=== PATIENT | female | born 1975 | race Caucasian/White ===

== ENCOUNTER 2017-02-12 21:17 | Emergency (ER) | payer OTHER ==
[~2017-02-12] VITALS: Ht 177.8 cm; Wt 114.1 kg
[2017-02-12 22:11] LABS: BLOOD UREA NITROGEN 13 mg/dL (7-18)
[2017-02-12 22:19] LABS: IS PT STATUS REG ER OR PRE ER? YES
[2017-02-12 23:14] VITALS: BP 138/92
== END 2017-02-12 23:15 | disposition home or self-care (01) ==
LOC: ED 23:09
DX: R07.89 Other chest pain (principal); I10 Essential (primary) hypertension
CPT/HCPCS: 36415; 71010; 80048; 82040; 83735; 84443; 84484; 85025; 93005; 99285

== ENCOUNTER 2017-09-18 12:34 | Emergency (ER) | payer OTHER ==
[~2017-09-18] VITALS: Ht 177.8 cm; Wt 115.0 kg
[2017-09-18] MEDS ORDERED: MECLIZINE CHEWABLE 25 MG TAB PO ONE (14:00)
[2017-09-18 14:18] LABS: HEMOGLOBIN 14.4 g/dL (11.7-16.4); WHITE BLOOD COUNT 7.3 x10^3/uL (3.4-10)
[2017-09-18 14:27] LABS: BLOOD UREA NITROGEN 12 mg/dL (7-18)
[2017-09-18 14:35] LABS: IS PT STATUS REG ER OR PRE ER? YES
[2017-09-18] MEDS ORDERED: MECLIZINE CHEWABLE 25 MG TAB ONE (14:35)
[2017-09-18 15:17] VITALS: BP 145/113
== END 2017-09-18 15:28 | disposition home or self-care (01) ==
LOC: ED 15:22
DX: I10 Essential (primary) hypertension (principal)
CPT/HCPCS: 36415; 70551; 80048; 82040; 83735; 84484; 85025; 93005; 99285

== ENCOUNTER 2018-08-02 22:19 | Emergency (ER) | payer OTHER ==
[~2018-08-02] VITALS: Ht 177.8 cm; Wt 115.6 kg
[2018-08-02] MEDS ORDERED: DILTIAZEM 5 MG/ML, 5ML IV ONE (23:30)
[2018-08-02 23:37] LABS: BASOPHILS # (AUTO) 0.03 x10^3/uL (0-0.1); BASOPHILS % (AUTO) 0 % (0-1); EOSINOPHILS # (AUTO) 0.36 x10^3/uL (0-0.4); EOSINOPHILS % (AUTO) 4 % (1-7); LYMPHOCYTES # (AUTO) 3.15 x10^3/uL (1-3.4); LYMPHOCYTES % (AUTO) 32 % (22-44); MD NO; MEAN CORPUSCULAR HEMOGLOBIN 34.6 pg (27.0-34.8); MEAN CORPUSCULAR HGB CONC 34.6 g/dL (32.4-35.8); MEAN PLATELET VOLUME 8.4 fL (7.4-10.4); MONOCYTES % (AUTO) 10 % (2-9); NEUTROPHILS # (AUTO) 5.27 x10^3/uL (1.8-6.8); NEUTROPHILS % (AUTO) 54 % (42-75); PLATELET COUNT 229 x10^3/uL (130-400); RED BLOOD COUNT 4.71 x10^6/uL (3.82-5.3); RED CELL DISTRIBUTION WIDTH 13.2 % (9.6-15.2)
[2018-08-02] MEDS ORDERED: DILTIAZEM 5 MG/ML, 5ML ONE (23:46)
[2018-08-02 23:49] LABS: ANION GAP 11 mmol/L (5-15); CALCIUM 9.6 mg/dL (8.5-10.1); CHLORIDE 106 mmol/L (98-107); CREATININE 0.92 mg/dL (0.55-1.02)
[2018-08-02 23:54] LABS: FREE T4 (FREE THYROXINE) 1.31 ng/dL (0.76-1.46); TROPONIN I < 0.015 ng/mL (0.000-0.045)
[2018-08-03] MEDS ORDERED: DILTIAZEM 5 MG/ML, 5ML IV ONE (00:30)
[2018-08-03] MEDS ORDERED: DILTIAZEM 5 MG/ML, 5ML ONE (00:35)
[2018-08-03] MEDS ORDERED: ASPIRIN 81 MG TABLET CHEW ONE (01:19)
[2018-08-03] MEDS ORDERED: ASPIRIN 325 MG TABLET ONE (01:22)
[2018-08-03] MEDS ORDERED: ASPIRIN 325 MG TABLET PO ONE (01:30)
[2018-08-03] MEDS ORDERED: METOPROLOL 1 MG/ML, 5ML ONE (01:54)
[2018-08-03 01:57] VITALS: BP 118/88
[2018-08-03] MEDS ORDERED: METO25TA35 PO (01:59)
[2018-08-03] MEDS ORDERED: LISI-167 PO (01:59)
[2018-08-03] MEDS ORDERED: METOPROLOL 1 MG/ML, 5ML IVPush ONE (02:00)
== END 2018-08-03 03:06 | disposition home or self-care (01) ==
LOC: ED 08-03 00:15
DX: I48.0 Paroxysmal atrial fibrillation (principal); I10 Essential (primary) hypertension; F17.210 Nicotine dependence, cigarettes, uncomplicated; Z90.89 Acquired absence of other organs
CPT/HCPCS: 36415; 71045; 80048; 82040; 84439; 84443; 84484; 85025; 93005; 96374; 96375; 96376; 99291

== ENCOUNTER 2018-08-26 10:19 | Inpatient (IN) | payer OTHER ==
[~2018-08-26] VITALS: Ht 177.8 cm; Wt 121.1 kg
[~2018-08-26 10:19] MED LIST: LISI-167 PO; METO25TA35 PO
[2018-08-26] MEDS ORDERED: METOPROLOL 1 MG/ML, 5ML ONE ×2 (10:50→11:24)
[2018-08-26] MEDS ORDERED: ASPIRIN 81 MG TABLET CHEW ONE (10:50)
[2018-08-26] MEDS ORDERED: ASPIRIN 81 MG TABLET CHEW PO ONE (11:00)
[2018-08-26] MEDS ORDERED: METOPROLOL 1 MG/ML, 5ML IVPush ONE ×2 (11:00→12:00)
[2018-08-26] MEDS ORDERED: SODIUM CHLORIDE FLUSH 10ML SYR IVF ONE (11:00)
[2018-08-26 11:34] LABS: BASOPHILS # (AUTO) 0.05 x10^3/uL (0-0.1); BASOPHILS % (AUTO) 1 % (0-1); EOSINOPHILS # (AUTO) 0.24 x10^3/uL (0-0.4); EOSINOPHILS % (AUTO) 2 % (1-7); LYMPHOCYTES # (AUTO) 1.78 x10^3/uL (1-3.4); LYMPHOCYTES % (AUTO) 18 % (22-44); MD NO; MEAN CORPUSCULAR HEMOGLOBIN 34.8 pg (27.0-34.8); MEAN CORPUSCULAR VOLUME 99.4 fL (80-100); MEAN PLATELET VOLUME 8.4 fL (7.4-10.4); MONOCYTES # (AUTO) 0.84 x10^3/uL (0.2-0.8); MONOCYTES % (AUTO) 8 % (2-9); NEUTROPHILS # (AUTO) 7.12 x10^3/uL (1.8-6.8); NEUTROPHILS % (AUTO) 71 % (42-75); PLATELET COUNT 174 x10^3/uL (130-400); RED BLOOD COUNT 4.47 x10^6/uL (3.82-5.3); RED CELL DISTRIBUTION WIDTH 13.2 % (9.6-15.2)
[2018-08-26 11:41] LABS: INTERNATIONAL NORMALIZED RATIO 0.97 (0.93-1.1); PROTHROMBIN TIME 10.3 Seconds (9.6-11.5)
[2018-08-26 11:46] LABS: ALBUMIN 3.6 g/dL (3.4-5.0); ANION GAP 9 mmol/L (5-15); CALCIUM 8.9 mg/dL (8.5-10.1); CHLORIDE 111 mmol/L (98-107)
[2018-08-26 11:51] LABS: CREATININE 0.88 mg/dL (0.55-1.02); TROPONIN I < 0.015 ng/mL (0.000-0.045)
[2018-08-26] MEDS ORDERED: PROPOFOL 10 MG/ML, 20ML ONE (12:17)
[2018-08-26] MEDS ORDERED: DILTIAZEM 5 MG/ML, 5ML ONE ×2 (12:38→14:08)
[2018-08-26 13:00] LABS: T4 (THYROXINE) 13.5 mcg/dL (4.8-13.9)
[2018-08-26] MEDS ORDERED: PROPOFOL 10 MG/ML, 20ML IVPush ONE (13:00)
[2018-08-26] MEDS ORDERED: DILTIAZEM 5 MG/ML, 5ML IV ONE (13:00)
[2018-08-26 13:09] LABS: THYROID STIMULATING HORMONE 1.28 mIU/L (0.358-3.740)
[2018-08-26] MEDS ORDERED: DIGOXIN 0.25 MG/ML, 2ML ONE (13:10)
[2018-08-26] MEDS: DILTIAZEM 125 MG in DEXTROSE 5% 100 ML IV SCH ×2 (13:16→16:20)
[2018-08-26] MEDS: DILTIAZEM 125 MG in SODIUM CHLORIDE 0.9% 100 ML IV SCH (13:20)
[2018-08-26] MEDS ORDERED: ACETAMINOPHEN 650 MG/20.3 ML UDC PO PRN (13:30)
[2018-08-26] MEDS ORDERED: ZOLPIDEM 5MG TABLET PO PRN (13:30)
[2018-08-26] MEDS ORDERED: BISACODYL 5 MG EC TABLET PO PRN (13:30)
[2018-08-26] MEDS ORDERED: BISACODYL 10 MG SUPP PR PRN (13:30)
[2018-08-26] MEDS ORDERED: DIGOXIN 0.25 MG/ML, 2ML IVPush ONE (13:30)
[2018-08-26] MEDS ORDERED: SODIUM CHLORIDE FLUSH 10ML SYR IVF PRN (13:30)
[2018-08-26 14:00] LABS: ANION GAP 7 mmol/L (5-15); CALCIUM 8.9 mg/dL (8.5-10.1); CHLORIDE 113 mmol/L (98-107); CHOLESTEROL, TOTAL 191 mg/dL (140-239); CREATININE 0.94 mg/dL (0.55-1.02); TRIGLYCERIDES 57 mg/dL (50-200); VLDL CHOLESTEROL 11 mg/dL (0-25)
[2018-08-26] MEDS ORDERED: MAGNESIUM SULFATE PMX 2GM/50ML 50 ML IV ONE (14:00)
[2018-08-26] MEDS ORDERED: DILTIAZEM 5 MG/ML, 5ML IVPush ONE (14:00)
[2018-08-26] MEDS ORDERED: METO25TA35 PO (14:00)
[2018-08-26 14:04] LABS: CHOL/HDL RATIO 2.1; FREE T4 (FREE THYROXINE) 1.19 ng/dL (0.76-1.46); HDL CHOL % 47 % (28-40); HDL CHOLESTEROL (DIRECT) 90 mg/dL (40-60); LDL CHOLESTEROL,CALCULATED 90 mg/dL (54-169); TROPONIN I < 0.015 ng/mL (0.000-0.045)
[2018-08-26 14:40] VITALS: BP 138/86
[2018-08-26] MEDS ORDERED: ASPI81TA50 PO (15:04)
[2018-08-26] MEDS ORDERED: NICOTINE 7 MG/24 HR PATCH.TD24 TD SCH (16:00)
[2018-08-26] MEDS: DABIGATRAN 150 MG CAPSULE PO SCH (16:19)
[2018-08-26] MEDS: FLECAINIDE 100MG TABLET PO SCH (16:19)
[2018-08-26 19:49] LABS: TROPONIN I < 0.015 ng/mL (0.000-0.045)
[2018-08-26 20:20] VITALS: BP 112/72
[2018-08-26 20:25] VITALS: BP 129/78
[2018-08-26] MEDS: SODIUM CHLORIDE FLUSH 10ML SYR IVF SCH (20:25)
[2018-08-26] MEDS: METOPROLOL TARTRATE 50 MG TABLET PO SCH (20:26)
[2018-08-27 01:02] VITALS: BP 103/62
[2018-08-27] MEDS: FLECAINIDE 100MG TABLET PO SCH (01:04)
[2018-08-27] MEDS: DILTIAZEM 125 MG in SODIUM CHLORIDE 0.9% 100 ML IV SCH (01:30)
[2018-08-27 01:52] LABS: TROPONIN I < 0.015 ng/mL (0.000-0.045)
[2018-08-27 06:34] VITALS: BP 103/67
[2018-08-27] MEDS: METOPROLOL TARTRATE 50 MG TABLET PO SCH (08:19)
[2018-08-27] MEDS: DABIGATRAN 150 MG CAPSULE PO SCH (08:20)
[2018-08-27] MEDS: SODIUM CHLORIDE FLUSH 10ML SYR IVF SCH (10:05)
[2018-08-27] MEDS ORDERED: METO50TA82 PO (10:14)
[2018-08-27] MEDS ORDERED: FLEC100T PO (10:14)
[2018-08-27] MEDS ORDERED: DABI150C PO (10:14)
== END 2018-08-27 11:02 | disposition home or self-care (01) | DRG 310 ==
LOC: ED 13:26 → EDIP 13:27 → ED 13:38 → 5SO 14:32 → DCLOUNGE 08-27 10:55
PROVIDERS: ADMIT Internal Medicine Cardiovascular Disease; ATTEND Internal Medicine Cardiovascular Disease
PROC: 5A2204Z Restoration of Cardiac Rhythm, Single (ICD-10-PCS; principal; 2018-08-26)
DX: I48.0 Paroxysmal atrial fibrillation (principal); E11.9 Type 2 diabetes mellitus without complications; I47.1 Supraventricular tachycardia; F17.200 Nicotine dependence, unspecified, uncomplicated; I10 Essential (primary) hypertension
CPT/HCPCS: 36415; 71045; 80048; 80061; 82040; 83735; 83880; 84436; 84439; 84443; 84484; 85014; 85018; 85025; 85610; 85730; 93005; 96374; 96375; 99291; G0378; J2704; J1160; J3475

== ENCOUNTER 2019-04-13 02:28 | Emergency (ER) | payer OTHER ==
[~2019-04-13] VITALS: Ht 177.8 cm; Wt 124.5 kg
[~2019-04-13 02:28] MED LIST changes: +ASPI81TA50 PO; +DABI150C PO; +FLEC100T PO; +METO50TA82 PO
--- NOTE | 2019-04-13 02:52 | NUR ---
Pt changed into gown and placed on all monitors. Pt c/o multiple pains all over body, chest pressure x 1 day. ERMD to see.
[2019-04-13 03:28] LABS: BASOPHILS # (AUTO) 0.04 x10^3/uL (0-0.1); BASOPHILS % (AUTO) 0 % (0-1); EOSINOPHILS # (AUTO) 0.42 x10^3/uL (0-0.4); EOSINOPHILS % (AUTO) 5 % (1-7); LYMPHOCYTES # (AUTO) 1.92 x10^3/uL (1-3.4); LYMPHOCYTES % (AUTO) 24 % (22-44); MD NO; MEAN CORPUSCULAR HEMOGLOBIN 34.6 pg (27.0-34.8); MEAN CORPUSCULAR HGB CONC 33.5 g/dL (32.4-35.8); MEAN CORPUSCULAR VOLUME 103.4 fL (80-100); MONOCYTES # (AUTO) 0.84 x10^3/uL (0.2-0.8); MONOCYTES % (AUTO) 11 % (2-9); NEUTROPHILS # (AUTO) 4.79 x10^3/uL (1.8-6.8); NEUTROPHILS % (AUTO) 60 % (42-75); PLATELET COUNT 199 x10^3/uL (130-400); RED BLOOD COUNT 4.09 x10^6/uL (3.82-5.3); RED CELL DISTRIBUTION WIDTH 13.2 % (9.6-15.2)
[2019-04-13 03:40] LABS: ALANINE AMINOTRANSFERASE 28 U/L (12-78); ALBUMIN 3.2 g/dL (3.4-5.0); ANION GAP 7 mmol/L (5-15); CALCIUM 8.6 mg/dL (8.5-10.1); CHLORIDE 107 mmol/L (98-107); CREATININE 0.84 mg/dL (0.55-1.02)
[2019-04-13 03:45] LABS: ALKALINE PHOSPHATASE 90 U/L (45-117); BILIRUBIN,TOTAL 0.6 mg/dL (0.2-1.0); TOTAL PROTEIN 6.4 g/dL (6.4-8.2); TROPONIN I < 0.015 ng/mL (0.000-0.045)
[2019-04-13 04:01] VITALS: BP 135/84
== END 2019-04-13 04:03 | disposition home or self-care (01) ==
LOC: ED 02:42
DX: R00.2 Palpitations (principal); I48.91 Unspecified atrial fibrillation; F17.200 Nicotine dependence, unspecified, uncomplicated; I47.1 Supraventricular tachycardia
CPT/HCPCS: 36415; 80053; 83735; 84484; 85025; 93005; 99284

== ENCOUNTER 2019-11-26 07:24 | Emergency (ER) | payer OTHER ==
[~2019-11-26] VITALS: Ht 177.8 cm; Wt 109.2 kg
[2019-11-26] MEDS ORDERED: DILTIAZEM 5 MG/ML, 5ML IVPush STA (07:54)
[2019-11-26] MEDS ORDERED: SODIUM CHLORIDE FLUSH 10ML SYR IVF ONE (08:00)
--- NOTE | 2019-11-26 08:00 | NUR ---
PT WITH HX SVT/AFIB ON FLECANIDE, WOKE THIS AM APPROX 0600 WITH SOB/PALPITATIONS. PT HAS HAD ELECTRICAL CARDIOVERSION/ADENOSINE IN THE PAST. PT TO CARD MONITOR, BP, CONT PULSE OX. PIV INITIATED
[2019-11-26 08:13] LABS: BASOPHILS # (AUTO) 0.03 x10^3/uL (0-0.1); BASOPHILS % (AUTO) 0 % (0-1); EOSINOPHILS # (AUTO) 0.16 x10^3/uL (0-0.4); EOSINOPHILS % (AUTO) 2 % (1-7); LYMPHOCYTES # (AUTO) 2.17 x10^3/uL (1-3.4); LYMPHOCYTES % (AUTO) 32 % (22-44); MD NO; MEAN CORPUSCULAR HEMOGLOBIN 33.4 pg (27.0-34.8); MEAN CORPUSCULAR HGB CONC 33.7 g/dL (32.4-35.8); MEAN CORPUSCULAR VOLUME 99.2 fL (80-100); MEAN PLATELET VOLUME 6.9 fL (7.4-10.4); MONOCYTES # (AUTO) 0.77 x10^3/uL (0.2-0.8); MONOCYTES % (AUTO) 12 % (2-9); NEUTROPHILS # (AUTO) 3.59 x10^3/uL (1.8-6.8); NEUTROPHILS % (AUTO) 53 % (42-75); PLATELET COUNT 189 x10^3/uL (130-400); RED BLOOD COUNT 4.76 x10^6/uL (3.82-5.3); RED CELL DISTRIBUTION WIDTH 12.9 % (9.6-15.2)
--- NOTE | 2019-11-26 08:24 | NUR ---
ORDERS RECIEVED TO HOLD DOSE OF DILT, PER ERMD. AWAITING ERMD TO SPEAK WITH PTS FRONT END SPECIALIST DR FARNSWORTH
[2019-11-26 08:25] LABS: ALBUMIN 3.8 g/dL (3.4-5.0); ANION GAP 6 mmol/L (5-15); CALCIUM 9.3 mg/dL (8.5-10.1); CHLORIDE 107 mmol/L (98-107); CREATININE 0.89 mg/dL (0.55-1.02)
[2019-11-26 08:30] LABS: TROPONIN I < 0.015 ng/mL (0.000-0.045)
--- NOTE | 2019-11-26 08:42 | NUR ---
PT CONVERTED BACK TO SR 80-90. ER PROVIDER UPDATED
[2019-11-26 09:14] VITALS: BP 121/89
[2019-11-26] MEDS ORDERED: DILTIAZEM CD 180 MG CAP.ER.24H PO SCH (09:30)
== END 2019-11-26 10:00 | disposition home or self-care (01) ==
LOC: ED 09:57
DX: I48.20 Chronic atrial fibrillation, unspecified (principal); R06.00 Dyspnea, unspecified
CPT/HCPCS: 36415; 71045; 80048; 82040; 83735; 84484; 85025; 93005; 99285